=== PATIENT | male | born 1960 | race Caucasian/White ===

== ENCOUNTER 2017-06-15 20:01 | Emergency (ER) | payer OTHER ==
[~2017-06-15] VITALS: Ht 172.7 cm; Wt 81.6 kg
[~2017-06-15 20:01] MED LIST: CARDURA1 MG PO; OMEPRAZOLE20 MG PO
[2017-06-16] MEDS ORDERED: CYCLOBENZAPRINE10 MG PO (00:56)
[2017-06-16] MEDS ORDERED: KETO10TA2 PO (00:56)
[2017-06-16] MEDS ORDERED: ORPHENADRINE C100 MG PO (00:56)
== END 2017-06-16 01:08 | disposition home or self-care (01) ==
LOC: ER 20:01
DX: S22.41XA Multiple fractures of ribs, right side, initial encounter for closed fracture (principal); W18.2XXA Fall in (into) shower or empty bathtub, initial encounter; Y93.E1 Activity, personal bathing and showering; Y92.091 Bathroom in other non-institutional residence as the place of occurrence of the external cause; Y99.8 Other external cause status

== ENCOUNTER 2024-05-04 19:19 | Emergency (ER) | payer OTHER ==
[~2024-05-04] VITALS: Ht 170.2 cm; Wt 73.9 kg
[~2024-05-04 19:19] MED LIST changes: +CYCLOBENZAPRINE10 MG PO; +KETO10TA2 PO; +ORPHENADRINE C100 MG PO
[2024-05-04] MEDS ORDERED: KETOROLAC TROMETHAMINE 30 MG VIAL IU ONE (20:30)
[2024-05-04] MEDS ORDERED: FAMOtidine 10 MG/ML (4ML VIAL) IV ONE (20:30)
[2024-05-04] MEDS ORDERED: KETOROLAC TROMETHAMINE 30 MG VIAL ONE (20:32)
[2024-05-04] MEDS ORDERED: FAMOTIDINE/PF 20 MG/2 ML VIAL ONE (20:33)
[2024-05-04 21:01] LABS: HEMATOCRIT 42.8 % (39.0-48.0); MEAN CORPUSCULAR HEMOGLOBIN 29.9 pg (27.00-32.0); MEAN CORPUSCULAR HGB CONC 35.1 g/dl (32.0-36.0); PLATELET COUNT 250 K/uL (150-450); RED BLOOD COUNT 5.03 M/uL (4.00-6.00); RED CELL DISTRIBUTION WIDTH 14.2 % (11.5-14.5)
[2024-05-04 21:14] LABS: INR 0.96; PARTIAL THROMBOPLASTIN TIME 26.7 SECONDS (22.0-34.0); PROTHROMBIN TIME 10.5 SECONDS (9.0-11.5)
[2024-05-04 21:23] LABS: ALBUMIN 3.7 gm/dL (3.4-5.0); BILIRUBIN TOTAL 0.61 mg/dL (0.3-1.2); CALCIUM 8.9 mg/dL (8.5-10.1); CREATININE SERUM 0.92 mg/dL (0.70-1.30); GFR 82.57; GLOBULINA 3.4 G/DL (2.4-3.5); POTASSIUM 4.09 mEq/L (3.5-5.1); TOTAL PROTEIN 7.1 gm/dL (6.4-8.2)
[2024-05-04 21:24] LABS: PH,URINE 5.5 (5.0-8.0); URINE APPEARANCE Clear; URINE BILIRRUBIN Negative (NEGATIVE); URINE BLOOD Negative; URINE COLOR Yellow; URINE GLUCOSE Negative (NEGATIVE); URINE KETONE Trace (NEGATIVE); URINE LEUKOCYTE Trace; URINE NITRATE Negative; URINE PROTEIN Negative (NEGATIVE)
[2024-05-04 21:25] LABS: URINE BACTERIA 7.3 uL (0.0-1933)
[2024-05-04 21:28] LABS: URINE EPITHELIAL CELLS 1.2 uL (0.0-38.8); URINE RBC 1.4 uL (0.0-20.8)
[2024-05-04 23:00] VITALS: BP 154/85; O2SAT 98
[2024-05-04] MEDS ORDERED: CEFTRIAXONE SODIUM 1,000 MG VIAL ONE (23:29)
[2024-05-04] MEDS ORDERED: CEFTRIAXONE SODIUM 1,000 MG VIAL IV ONE (23:30)
[2024-05-05] MEDS ORDERED: KETOROLAC TROMETHAMINE 30 MG VIAL ONE (03:11)
[2024-05-05] MEDS ORDERED: KETOROLAC TROMETHAMINE 30 MG VIAL IV ONE (03:15)
[2024-05-05] MEDS ORDERED: KETO10TA2 PO (03:50)
[2024-05-05] MEDS ORDERED: CEPHALEXIN500 M1 PO (03:50)
== END 2024-05-05 04:05 ==
LOC: ER 19:21
PROVIDERS: General Practice
DX: R10.31 Right lower quadrant pain (principal); K57.30 Diverticulosis of large intestine without perforation or abscess without bleeding; I10 Essential (primary) hypertension; Z88.8 Allergy status to other drugs, medicaments and biological substances